=== PATIENT | female | born 1950 | race Caucasian/White ===

== ENCOUNTER 2017-01-07 16:34 | Emergency (ER) | payer BC, OTHER ==
[2017-01-07 16:40] VITALS: TEMP 97.3; BMI 34.7
--- NOTE | 2017-01-07 17:05 | PDOC ---
History of Present Illness <Aaron Burnett - Last Filed: 01/07/17 17:05> - History of Present Illness Initial Comments: 01/07/17 18:09 The patient is a 66 year old female with a past medical hx of hypercholesterolemia who presents to the ED complaining of a headache for four days. The patient describes her headache as diffuse and intense. She notes a half hour [place] she had an episode of double vision. She reports this double vision lasted for three minutes. She reports it happened when she was watching the television and when she was looking at herself in the mirror. Her children report she seems to be mentally altered and not as quick to respond as usual. The daughter denies any facial droop and reports she was able to walk up the stairs without complication. The daughter reports she went to the doctor last week because she was having cold symptoms. She notes dyspnea on exertion. She was given some medicine for her symptoms. Since then she has been having a progressively worsening headache. The patient denies and chest pain, vomiting, diarrhea, abdominal pain The patient denies fever, chills, dysuria <Nubia Calzada - Last Filed: 01/07/17 18:47> <Devorah Singh - Last Filed: 01/08/17 06:48> - General Chief Complaint: Headache Stated Complaint: BLURRY VISION, DIZZINESS Time Seen by Provider: 01/07/17 17:04 Past History - Past Medical History Hypercholesterolemia: Yes - Surgical History GI Surgery: Yes - Psycho/Social/Smoking Cessation Hx Suicidal Ideation: No Smoking History: Never smoked <Aaron Burnett - Last Filed: 01/07/17 17:05> <Nubia Calzada - Last Filed: 01/07/17 18:47> <Devorah Singh - Last Filed: 01/08/17 06:48> - Past Medical History Allergies/Adverse Reactions: Allergies Allergy/AdvReac Type Severity Reaction Status Date / Time No Known Allergies Allergy Verified 01/07/17 16:40 Home Medications: Ambulatory Orders Atorvastatin Ca [Lipitor] 20 mg PO HS 01/07/17 Meclizine HCl [Antivert -] 25 mg PO QID #28 tablet 01/07/17 Propranolol HCl [Inderal Xl] 80 mg PO DAILY 01/07/17 Review of Systems - Review of Systems Able to Perform ROS?: Yes Comments:: 01/07/17 18:09 GENERAL/CONSTITUTIONAL: No fever or chills. No weakness. HEAD, EYES, EARS, NOSE AND THROAT:+Double vision. No ear pain or discharge. No sore throat. CARDIOVASCULAR: No chest pain. RESPIRATORY:+Dyspnea on exertion. No cough, wheezing, or hemoptysis. GASTROINTESTINAL: No nausea, vomiting, diarrhea or constipation. GENITOURINARY: No dysuria, frequency, or change in urination. MUSCULOSKELETAL: No joint or muscle swelling or pain. No neck or back pain. SKIN: No rash NEUROLOGIC:+Headache. No loss of consciousness, or change in strength/sensation. ENDOCRINE: No increased thirst. No abnormal weight change. HEMATOLOGIC/LYMPHATIC: No anemia, easy bleeding, or history of blood clots. ALLERGIC/IMMUNOLOGIC: No hives or skin allergy. <Nubia Calzada - Last Filed: 01/07/17 18:47> *Physical Exam - Vital Signs Last Vital Signs Temp Pulse Resp BP Pulse Ox 97.3 F L 74 18 137/75 99 01/07/17 16:36 01/07/17 16:36 01/07/17 16:36 01/07/17 16:36 01/07/17 16:36 <Aaron Burnett - Last Filed: 01/07/17 17:05> - Vital Signs Last Vital Signs Temp Pulse Resp BP Pulse Ox 97.3 F L 74 18 137/75 99 01/07/17 16:36 01/07/17 16:36 01/07/17 16:36 01/07/17 16:36 01/07/17 16:36 - Physical Exam Comments: 01/07/17 18:09 GENERAL: Awake, alert, and fully oriented, in no acute distress HEAD: No signs of trauma EYES: PERRLA, EOMI, sclera anicteric, conjunctiva clear ENT: Auricles normal inspection, hearing grossly normal, nares patent, oropharynx clear without exudates. Moist mucosa NECK: Normal ROM, supple, no lymphadenopathy, JVD, or masses LUNGS: Breath sounds equal, clear to auscultation bilaterally. No wheezes, and no crackles HEART: Regular rate and rhythm, normal S1 and S2, no murmurs, rubs or gallops ABDOMEN: Soft, nontender, normoactive bowel sounds. No guarding, no rebound. No masses EXTREMITIES: Normal range of motion, no edema. No clubbing or cyanosis. No cords, erythema, or tenderness NEUROLOGICAL: Cranial nerves II through XII grossly intact. Normal speech, normal gait SKIN: Warm, Dry, normal turgor, no rashes or lesions noted. <Nubia Calzada - Last Filed: 01/07/17 18:47> - Vital Signs Last Vital Signs Temp Pulse Resp BP Pulse Ox 97.3 F L 74 18 137/75 99 01/07/17 16:36 01/07/17 16:36 01/07/17 16:36 01/07/17 16:36 01/07/17 16:36 <Devorah Singh - Last Filed: 01/08/17 06:48> ED Treatment Course - LABORATORY CBC & Chemistry Diagram: 01/07/17 17:18 01/07/17 17:18 - ADDITIONAL ORDERS Additional order review: 01/07/17 17:18 RBC 4.83 MCV 85.0 MCHC 33.3 RDW 14.1 MPV 8.3 Neutrophils % 64.7 Lymphocytes % 26.5 Monocytes % 5.7 Eosinophils % 2.4 Basophils % 0.7 - Medications Given in the ED: ED Medications Discontinued Medications Generic Name Dose Route Start Last Admin Trade Name Grahamq PRN Reason Stop Dose Admin Morphine Sulfate 2 mg 01/07/17 17:18 01/07/17 17:48 Morphine Injection - IVPUSH 01/07/17 17:19 2 mg ONCE ONE Administration Ondansetron HCl 4 mg 01/07/17 17:18 01/07/17 17:48 Zofran Injection IVPUSH 01/07/17 17:19 4 mg ONCE ONE Administration <Nubia Calzada - Last Filed: 01/07/17 18:47> - LABORATORY CBC & Chemistry Diagram: 01/07/17 17:18 01/07/17 17:18 - ADDITIONAL ORDERS Additional order review: Laboratory Results 01/07/17 01/07/17 17:18 17:18 INR 0.98 Sodium 140 Potassium 4.2 Chloride 103 Carbon Dioxide 28 Anion Gap 9 BUN 25 H Creatinine 0.8 Creat Clearance w eGFR > 60 Random Glucose 108 H Calcium 9.1 Total Bilirubin 0.2 AST 16 ALT 25 Alkaline Phosphatase 73 Total Protein 7.1 Albumin 3.9 01/07/17 17:18 RBC 4.83 MCV 85.0 MCHC 33.3 RDW 14.1 MPV 8.3 Neutrophils % 64.7 Lymphocytes % 26.5 Monocytes % 5.7 Eosinophils % 2.4 Basophils % 0.7 - Medications Given in the ED: ED Medications Discontinued Medications Generic Name Dose Route Start Last Admin Trade Name Jared PRN Reason Stop Dose Admin Sodium Chloride 1,000 mls @ 1,000 mls/hr 01/07/17 17:18 01/07/17 17:48 Normal Saline - IV 01/07/17 18:17 1,000 mls/hr ASDIR STA Administration Morphine Sulfate 2 mg 01/07/17 17:18 01/07/17 17:48 Morphine Injection - IVPUSH 01/07/17 17:19 2 mg ONCE ONE Administration Ondansetron HCl 4 mg 01/07/17 17:18 01/07/17 17:48 Zofran Injection IVPUSH 01/07/17 17:19 4 mg ONCE ONE Administration <Devorah Singh - Last Filed: 01/08/17 06:48> Medical Decision Making - Medical Decision Making 01/07/17 18:47 The patient is a 66 year old female with a past medical hx of hypercholesterolemia who presents to the ED complaining of a headache for four days. The patient is also complaining of episodes of double vision. The plan is to order CT head, labs. <Nubia Calzada - Last Filed: 01/07/17 18:47> - Medical Decision Making 01/07/17 19:53 Patient Name: Nicole Leonard THIS IS A PRELIMINARY REPORT FROM [facility] DATE OF SERVICE: 2017-01-07 18:33:06.0 IMAGES: 70 EXAM: HEAD CT WITHOUT CONTRAST HISTORY:Frontal headache COMPARISON: None. FINDINGS: No acute intracranial hemorrhage, midline shift or extra-axial collection. No acute territorial infarction. Sinuses and mastoid air cells are clear. No acute calvarial fracture. THIS DOCUMENT HAS BEEN ELECTRONICALLY SIGNED I received pt on signout. She came with a headache. CT head is normal; exam normal; labs normal. She will be discharged as she is stable and she will follow with neurology 01/07/17 22:20 Patient Name: Nicole Leonard THIS IS A PRELIMINARY REPORT FROM [facility] IMAGES: [id number] EXAM DATE AND TIME: 2017-01-07 20:42:38.0 EXAM: CTA HEAD No major arterial branch occlusion, vascular malformation or aneurysm 3 mm or greater. Hypoplastic left posterior communicating artery. No definite hemorrhage, mass, or acute territorial infarct, but exam limited by contrast technique. Minimal mucoperiosteal thickening paranasal sinuses. Trace fluid/ mucus left sphenoid sinus. Mastoid air cells clear. Dental disease. THIS DOCUMENT HAS BEEN ELECTRONICALLY SIGNED 01/08/17 06:47 Pt will follow with neurology as an outpatient. <Devorah Singh - Last Filed: 01/08/17 06:48> *DC/Admit/Observation/Transfer - Attestations Physician Attestion: 01/07/17 17:05 I, Dr. Aaron Burnett, attest that this document has been prepared under my direction and personally reviewed by me in its entirety. I further attest, that it accurately reflects all work, treatment, procedures and medical decision -making performed by me. <Aaron Burnett - Last Filed: 01/07/17 17:05> - Attestations Scribe Attestion: 01/07/17 18:09 Documentation prepared by Nubia Calzada, acting as medical sales representative for Aaron Burnett MD/DO. <Nubia Calzada - Last Filed: 01/07/17 18:47> <Devorah Singh - Last Filed: 01/08/17 06:48> Diagnosis at time of Disposition: Headache, Blurry vision, Dizziness - Discharge Dispostion Disposition: HOME Condition at time of disposition: Stable - Prescriptions Prescriptions: Meclizine HCl [Antivert -] 25 mg PO QID #28 tablet - Referrals Referrals: Bacilio Justice MD [Primary Care Provider] - [facility] [Provider Group] - Patient Instructions Printed Discharge Instructions: DI for Headache
[2017-01-07] MEDS ORDERED: SODIUM CHLORIDE 1,000 ML IV STA (17:18)
[2017-01-07] MEDS ORDERED: ONDANSETRON 4 MG/2 ML VIAL IVPUSH ONE (17:18)
[2017-01-07] MEDS ORDERED: morphine CARPU-JECT 2 MG/1 ML DISP.SYRIN IVPUSH ONE (17:18)
[2017-01-07] MEDS ORDERED: morphine CARPU-JECT 2 MG/1 ML DISP.SYRIN ONE (17:32)
[2017-01-07] MEDS ORDERED: ONDANSETRON 4 MG/2 ML VIAL ONE (17:32)
[2017-01-07 17:52] LABS: BASOPHIL 0.7 % (0-2.0); EOSINOPHIL 2.4 % (0-4.5); MCH 28.3 pg (25.7-33.7); MCHC 33.3 g/dl (32.0-36.0); MEAN PLT VOLUME 8.3 fl (7.5-11.1); NEUTROPHILS 64.7 % (42.8-82.8); PLATELET COUNT 182 K/MM3 (134-434); RDW 14.1 % (11.6-15.6); WHITE BLOOD COUNT 8.9 K/mm3 (4.0-10.0)
[2017-01-07 18:04] LABS: INR 0.98 (0.82-1.09); PROTHROMBIN TIME (PATIENT) 10.8 SEC (9.98-11.88)
[2017-01-07 18:14] LABS: ALBUMIN 3.9 g/dl (3.4-5.0); ALK PHOS 73 U/L (45-117); ANION GAP 9 (8-16); BILIRUBIN,TOTAL 0.2 mg/dL (0.2-1.0); CALCIUM 9.1 mg/dL (8.5-10.1); CO2 28 mmol/L (21-32); CREATININE 0.8 mg/dL (0.55-1.02); GLUCOSE,RANDOM 108 mg/dL (74-106); SGOT/AST 16 U/L (15-37); SGPT/ALT 25 U/L (12-78); TOT PROT 7.1 g/dl (6.4-8.2)
[2017-01-07 22:49] VITALS: BP 114/56; PULSE 62
== END 2017-01-07 22:54 | disposition home or self-care (01) ==
LOC: JER 16:34
PROC: 3E033NZ Introduction of Analgesics, Hypnotics, Sedatives into Peripheral Vein, Percutaneous Approach (ICD-10-PCS; principal; 2017-01-07)
PROC: 3E033GC Introduction of Other Therapeutic Substance into Peripheral Vein, Percutaneous Approach (ICD-10-PCS; 2017-01-07)
DX: R51 Headache (principal); E78.00 Pure hypercholesterolemia, unspecified
CPT/HCPCS: 36415; 70450-TC; 70496-TC; 80053; 85025; 85610; 99283-25